=== PATIENT | male | born 1960 | race Caucasian/White ===

== ENCOUNTER → 2018-05-14 | Outpatient (CLI) | payer MEDICARE, OTHER, BC ==
[2018-05-14 15:01] LABS: ADD UMIC NO; UR ASCORBIC ACID 40 mg/dL (NEGATIVE); UR BILIRUBIN (Dip) NEGATIVE (NEGATIVE); UR BLOOD (Dip) NEGATIVE (NEGATIVE); UR CLARITY CLEAR (CLEAR); UR COLOR YELLOW (YELLOW); UR GLUCOSE (Dip) NEGATIVE (NEGATIVE); UR KETONES (Dip) NEGATIVE (NEGATIVE); UR LEUKOCYTE ESTERASE (Dip) NEGATIVE Leu/ul (NEGATIVE); UR NITRITE (Dip) NEGATIVE (NEGATIVE); UR SPECIFIC GRAVITY (Dip) 1.018 (1.003-1.030); UR TOTAL PROTEIN (Dip) NEGATIVE (NEGATIVE); UR UROBILINOGEN (Dip) NEGATIVE (NEGATIVE)
[2018-05-14 15:10] LABS: HEMOGLOBIN 13.2 g/dl (14.0-18.0); MEAN CORPUSCULAR HGB CONC 31.4 g/dl (32.0-37.0); MEAN CORPUSCULAR VOLUME 73.2 fl (82.0-101.0); MEAN PLATELET VOLUME 10.1 fl (7.4-10.4); PLATELET COUNT 295 10^3/UL (140-415); RED BLOOD COUNT 5.74 10^6/ul (4.70-6.10); RED CELL DISTRIBUTION WIDTH 19.6 % (11.5-14.5)
[2018-05-14 15:10] LABS: WHITE BLOOD COUNT 6.2 10^3/ul (4.8-10.8)
[2018-05-14 15:11] LABS: HDL CHOLESTEROL 42 mg/dl (28-71); LDL CHOLESTEROL,CALCULATED 92 mg/dl; TRIGLYCERIDES 169 mg/dl (0-149)
[2018-05-14 15:11] LABS: CHOLESTEROL 168 mg/dl (100-200)
[2018-05-14 15:13] LABS: INR 0.91; PARTIAL THROMBOPLASTIN TIME 26.4 Sec (25.0-35.0); PROTIME 12.3 Sec (11.9-14.9)
[2018-05-14 15:31] LABS: ADD MAN DIFF? YES
[2018-05-14 16:29] LABS: HEMOGLOBIN A1C 5.2 % (0-5.9)
[2018-05-14 16:58] LABS: ANISOCYTOSIS 1+ (0-0); BASOPHIL #M 0.1 10^3/ul (0.0-0.0); BASOPHILS % (M) 2 % (0-2); EOSINOPHILS % (M) 3 % (0-7); GIANT THROMBO% (M) 3 % (0-0); HYPOCHROMASIA 1+ (0-0); LYMPHOCYTES #M 3.4 10^3/ul (0.8-2.9); LYMPHOCYTES % (M) 56 % (15-51); METAMYELOCYTES #M 1.2 10^3/ul (0.0-0.0); METAMYELOCYTES %M 20 % (0-0); MICROCYTOSIS 1+ (0-0); MONOCYTE #M 0.3 10^3/ul (0.3-0.9); MONOCYTES % (M) 5 % (0-11); MYELOCYTES #M 0.1 10^3/ul (0.0-0.0); MYELOCYTES % (M) 2 % (0-0); PLATELET ESTIMATE NORMAL; POLYCHROMASIA 1+ (0-0); SEGMENTED NEUTROPHILS (M) % 12 % (39-77); SMUDGE%M 24 % (0-0)
[2018-05-14 17:16] LABS: CREATININE,URINE RANDOM 184.95 mg/dl (20-370); PROTEIN/CREAT RATIO 0.04 RATIO
[2018-05-17 16:22] LABS: CREATININE, RANDOM URINE 200 mg/dL (20-370); MICROALBUMIN/CREATININE RATIO 5 (<30)
== END | disposition home or self-care (01) ==
LOC: SDS 13:41
DX: Z01.818 Encounter for other preprocedural examination (principal); M19.90 Unspecified osteoarthritis, unspecified site; J70.4 Drug-induced interstitial lung disorders, unspecified
CPT/HCPCS: 71046; 80061; 81003; 82043; 82570; 83036; 85025; 85610; 85730; 93005